=== PATIENT | male | born 1985 | race Caucasian/White ===

== ENCOUNTER 2017-08-15 07:55 | Emergency (ER) | payer BC, SELFPAY, OTHER ==
[2017-08-15] MEDS ORDERED: ACETAMINOPHEN 325 MG TAB As Ordered (08:08)
[2017-08-15] MEDS: ACETAMINOPHEN TAB 650MG DOSE (2X325MG) PO (08:14)
[2017-08-15 08:50] LABS: INFLUENZA A AMPLIFICATION NEGATIVE (NEGATIVE); INFLUENZA B AMPLIFICATION NEGATIVE (NEGATIVE)
[2017-08-15] MEDS: ONDANSETRON 4 MG ORAL DISINTEGRATING TAB (S0181) PO (09:27)
== END 2017-08-15 09:28 | disposition home or self-care (01) ==
LOC: M ED 07:55
DX: R51 Headache (principal); A08.4 Viral intestinal infection, unspecified; Z87.891 Personal history of nicotine dependence; Z88.1 Allergy status to other antibiotic agents
CPT/HCPCS: 87502